=== PATIENT | male | born 2000 | race Two or more races ===

== ENCOUNTER 2021-07-06 13:33 | Emergency (ER) | payer MEDICAID, OTHER ==
[~2021-07-06] VITALS: Ht 175.3 cm; Wt 65.8 kg
[2021-07-06 15:34] VITALS: BP 123/80
[2021-07-06] MEDS ORDERED: KETOROLAC TROMETH 60MG/2ML VIAL IM ONE (16:00)
[2021-07-06] MEDS ORDERED: ONDANSETRON ODT 4 MG TAB PO ONE (16:00)
== END 2021-07-06 16:28 | disposition home or self-care (01) ==
LOC: ER 13:33
DX: S42.025A Nondisplaced fracture of shaft of left clavicle, initial encounter for closed fracture (principal); R51.9 Headache, unspecified; V29.40XA Motorcycle driver injured in collision with unspecified motor vehicles in traffic accident, initial encounter; Y93.55 Activity, bike riding; Y92.488 Other paved roadways as the place of occurrence of the external cause; Y99.8 Other external cause status
CPT/HCPCS: 70450; 73030; 96372; 99284; J1885; Q0162